=== PATIENT | male | born 1980 | race Caucasian/White ===

== ENCOUNTER 2016-09-05 20:14 | Observation (INO) ==
[2016-09-05] MEDS ORDERED: ALUM/MAG/SIMETH/LIDO VISC 1:1 30 ML BOTTLE PO STA (22:05)
[2016-09-05] MEDS ORDERED: ONDANSETRON 4 MG/2 ML VIAL IV STA (22:05)
[2016-09-05] MEDS ORDERED: NITROGLYCERIN 2% OINT 1 INCH/GM PACK TOP STA (22:05)
[2016-09-05] MEDS ORDERED: ASPIRIN 325 MG TABLET PO STA (22:05)
[2016-09-05] MEDS ORDERED: MORPHINE 2 MG/1 ML SYRINGE IV STA (22:05)
[2016-09-05 22:10] LABS: Basophils % 0.3 % (0.0-0.8); Eosinophils # 0.1 10*3/uL (0.0-0.87); Eosinophils % 0.9 % (0.00-10.9); Hematocrit 46.1 VOL% (42.0-52.0); Hemoglobin 15.5 GM/DL (14.0-18.0); Immature Granulocytes % 0.4 %; Immature Granulocytes Absolute 0.04 #; Lymphocytes # 3.8 10*3/uL (1.4-4.0); Lymphocytes % 35.9 % (21.2-54.2); Mean Corpuscular HGB Conc 33.6 GM/DL (32-36); Mean Corpuscular Hemoglobin 32 PG (27-34); Mean Corpuscular Volume 94.1 FL (87-102); Mean Platelet Volume 12.1 FL (9.6-12.0); Monocytes # 0.8 10*3/uL (0.11-0.8); Monocytes % 7.8 % (1.7-12.7); Neutrophils # 5.9 10*3/uL (1.4-7.4); Neutrophils % 54.7 % (38.7-73.9); Platelet Count 223 T/CUMM (130-400); Red Cell Distribution Width 13.2 % (9.3-17.3); White Blood Count 10.7 T/CUMM (4-12)
[2016-09-05] MEDS ORDERED: NITROGLYCERIN 2% OINT 1 INCH/GM PACK TOP ONE (22:16)
[2016-09-05] MEDS ORDERED: ONDANSETRON 4 MG/2 ML VIAL ONE (22:16)
[2016-09-05] MEDS ORDERED: METOPROLOL TARTRATE 25 MG TABLET ONE (22:16)
[2016-09-05] MEDS ORDERED: MORPHINE 2 MG/1 ML SYRINGE ONE (22:17)
[2016-09-05] MEDS ORDERED: ALUM/MAG/SIMETH/LIDO VISC 1:1 30 ML BOTTLE PO ONE (22:17)
[2016-09-05 22:19] LABS: D-Dimer <= 0.5 MG/L FEU; PT Patient Result 11.1 SECS
--- NOTE | 2016-09-05 22:19 | EKG Report ---
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
[2016-09-05] MEDS: METOPROLOL TARTRATE 25 MG TABLET PO STA ×2 (22:24→22:34)
[2016-09-05 22:25] LABS: Alanine Aminotransferase 40 U/L (16-61); Albumin 4.2 G/DL (3.4-5.0); Alkaline Phosphatase 59 U/L (45-117); Aspartate Amino Transferase 20 U/L (0-37); Bilirubin,Total < 0.39 MG/DL (0.2-1.0); Blood Urea Nitrogen 18 MG/DL (7-18); Calcium 8.8 MG/DL (8.5-10.1); Glucose 98 MG/DL (74-106); Magnesium 2.3 MG/DL (1.8-2.4); Osmolality,Calculated 284.1 MOS/KG (273-304); Potassium 4.3 MMOL/L (3.5-5.1); Sodium 142 MMOL/L (136-145); Total Protein 7.6 G/DL (6.4-8.3); Troponin I Only < 0.015 NG/ML (0.00-0.045)
--- NOTE | 2016-09-05 22:26 | Emergency Department Note ---
Amy Kearney Emily, am scribing for, and in the presence of, Shaan Fall MD 21: 59. Eufemia Kearney Charles R, MD, personally performed the services described in this documentation, ascribed by Nadiya Reyes in my presence, and it is both accurate and complete . Arrival - Arrival Chief Complaint: Weakness Stated Complaint: lightheaded/nausea/weakness/SOB ED Nursing Triage Note: pt states he has been having weakness and slight sob. went to the clinic and had labs and ekg done and was told to come here. dizzy at times and chest pressure this morning Mode of Arrival: Ambulatory Limitations: No Limitations Source: Patient Time Seen by Provider: 09/05/16 21:02 - History of Present Illness HPI Narrative: Pt is a 36 y/o male who came to ED from clinic for further evaluation of abnormal EKG earlier today. Pt c/o generalized weakness and chest pressure. He notes the pressure in chest has been ongoing for 3 weeks, in waves, however, the weakness started today and was a cause for his concern. Pt states he tried getting an appointment with Dr Leonidas Ji but no luck and [facility]. Pt reports walking a short distance he becomes extremely weak, and has not felt himself recently. His mother of heart issues in her mid- 40s. PMHx of degenerative disc in lower back, but denies official dx of DM. Pt denies tobacco usage. Onset (ago): week(s) Consistency: constant Severity: mild, moderate Severity scale (1-10): 4 Quality: other (pressure) Allergies/Adverse Reactions: Allergies Allergy/AdvReac Type Severity Reaction Status Date / Time Penicillins Allergy RASH Verified 06/15/15 17:27 Home Medications: Home Medications Medication Instructions Recorded Confirmed Type Propranolol LA Cap [Inderal LA Cap] 120 mg PO DAILY 05/04/16 09/05/16 History Review of System - Review of System 12 point system: reviewed and no additional remarkable complaints except as stated - Review of System Constitutional: Present: weakness (generalized). Absent: fever Respiratory: Absent: respiratory distress Cardiovascular: Absent: chest pain (pressure), syncope Gastrointestinal: Absent: abdominal pain, nausea, vomiting Genitourinary male: Absent: dysuria Musculoskeletal: Absent: arm pain, leg pain, neck pain Skin: Absent: rash Neurological: Absent: headache Psychiatric: Absent: anxiety Medical,Surgical,& Family Hx - Medical History Cardio: History of: Hypertension Genitourinary: History of: Recurring Urinary Tract Infections Musculoskeletal: History of: Back/Neck Problems, Herniated Disk - Surgical History HEENT Surgeries: Patient denies: Tonsilectomy & Adenoidectomy (Adnoidectomy only) - Family History Family History: Reports;: Family Heart Disease (mother in mid-40's ) - Social History Smoking Status: Never smoker Frequency of Alcohol Use: None Type of Drug Use: None Functional capacity: independent ambulation Exam Vital Signs: Vital Signs Temperature 97.9 F 09/05/16 20:15 Pulse Rate 68 09/05/16 20:15 Respiratory Rate 20 09/05/16 20:15 Blood Pressure 142/92 09/05/16 20:15 O2 Sat by Pulse Oximetry 97 09/05/16 20:15 - General General appearance: alert, in no apparent distress, obese - Head Head exam: Present: atraumatic, normocephalic - Eye Eye exam: Present: PERRL, EOMI - ENT ENT exam: Present: mucous membranes moist. Absent: mucous membranes dry - Neck Neck exam: Present: full ROM. Absent: tenderness - Chest Chest inspection: Present: symmetric chest wall rise. Absent: tenderness - Respiratory Respiratory exam: Present: normal lung sounds bilaterally. Absent: accessory muscle use, respiratory distress - Cardiovascular Cardiovascular exam: Present: regular rate, normal rhythm, normal heart sounds - Abdominal Exam Abdominal exam: Present: soft, normal bowel sounds. Absent: distention, tenderness - Extremities Exam Extremities exam: Present: full ROM, pedal edema (+1). Absent: tenderness - Neurological Exam Neurological exam: Present: alert, oriented X3, CN II-XII intact. Absent: motor sensory deficit - Psychiatric Psychiatric exam: Present: normal affect, normal mood - Skin Skin exam: Present: warm, dry Course - Consultations Consultation #1: Hospitalist will admit patient Time: 22:35 Results - Labs CBC & BMP: 09/05/16 22:05 09/05/16 22:05 Lab Results: I have reviewed the patients labs Labs: Laboratory Tests 09/05/16 22:05 MPV 12.1 H - Diagnostic Findings Procedure: Chest x-ray: report reviewed by me (No acute cardiopulmonary process. No significant interval change.) Disposition Clinical Impression: Chest pain, Atypical chest pain Case discussed with: patient, patient's family Disposition: Still a Patient Condition: Stable Time of Disposition: 22:35
--- NOTE | 2016-09-05 22:32 | XRay Report ---
History: Chest pain Date: 09/05/2016 Study: Chest x-ray AP portable Comparison exam: January 18, 2015 The cardiomediastinal silhouette and pulmonary vasculature are unremarkable. The lungs and pleural spaces are clear. The osseous structures are unremarkable. Impression: No acute cardiopulmonary process. No significant interval change PROCEDURE INTERPRETED AT [facility] DEPARTMENT OF RADIOLOGY Final Report Signed by: Dr. Emmie Alcazar
[2016-09-05] MEDS ORDERED: ASPIRIN 325 MG TABLET ONE (22:34)
[2016-09-05] MEDS ORDERED: ONDANSETRON 4 MG/2 ML VIAL IV PRN (23:04)
--- NOTE | 2016-09-05 23:11 | Hospitalist History & Physical ---
Assessment and Plan (1) Hypertension Status: Acute Current Visit: Yes (2) Degenerative disc disease Status: Acute Current Visit: Yes (3) Atypical chest pain Status: Acute Assessment and plan: Plan for this patient will be admitting him to our service. Patient will be placed on telemetry. Will consult cardiology for their evaluation. Also I suspect this patient has sleep apnea given secondary to description of some of his symptoms and his weight. Will consult sleep medicine also. Draw serial cardiac enzymes and reevaluate patient in the morning. Current Visit: Yes History of Present Illness Chief complaint: Chest/abdominal tightness History of present illness: Mr. Chavez is a 36 year old male with past medical history significant for degenerative disc disease and hypertension who was in his normal state of health for the past couple weeks. Patient from time to time notices this he gets a strange sensation in his lower chest and upper abdomen when he exerts himself. There is really no significant radiation of this pain. Patient describes it as pressure. He said today he just did not feel like himself. He feels weak. He also reports nausea and lightheadedness. Patient went to the clinic today. They did some lab work and did an EKG and then referred him to our ER secondary to his EKG displaying Q waves. Patient has no cardiac history that he knows of but his mother did have her first cardiac issue in her mid 40s. Patient is 36. I was consulted to admit him through the emergency room Home Medications Medication Instructions Recorded Confirmed Type Propranolol LA Cap [Inderal LA Cap] 120 mg PO DAILY 05/04/16 09/05/16 History Allergies Allergy/AdvReac Type Severity Reaction Status Date / Time Penicillins Allergy RASH Verified 06/15/15 17:27 Medical,Surgical,& Family Hx - Medical History Cardio: History of: Hypertension Genitourinary: History of: Recurring Urinary Tract Infections Musculoskeletal: History of: Back/Neck Problems, Herniated Disk - Surgical History HEENT Surgeries: Patient denies: Tonsilectomy & Adenoidectomy (Adnoidectomy only) Orthopedic Surgeries: Surgical HX of;: Orthopedic Surgery - Family History Family History: Reports;: Family Heart Disease (mother in mid-40's ) - Social History Smoking Status: Never smoker Frequency of Alcohol Use: None Type of Drug Use: None 12 point system: reviewed and no additional remarkable complaints except as stated Exam - Constitutional Vitals: Period Temp Pulse Resp BP Sys/Barillas Pulse Ox Last 24 Hr 97.9 F-97.9 F 68-68 18-20 142-142/92-92 97 General appearance: morbidly obese - Head Head exam: Present: normal inspection - Eye Eye exam: Present: EOMI Pupils: Present: EMMA - ENT ENT exam: Present: normal exam - Neck Neck exam: Present: normal inspection - Respiratory Respiratory exam: Present: clear to auscultation bilaterally - Cardiovascular Cardiovascular exam: Present: regular rate and rhythm - GI/Abdominal GI/Abdominal exam: Present: normal bowel sounds - Extremities Exam Extremities exam: Present: normal inspection - Back Exam Back exam: Present: normal inspection - Neurological Exam Neurological exam: Present: alert, oriented X3 - Psychiatric Psychiatric exam: Present: normal affect, normal mood - Skin Skin exam: Present: normal color Results - Labs CBC & BMP: 09/05/16 22:05 09/05/16 22:05
[2016-09-05 23:30] LABS: Risk Ratio 5.41; VLDL CHOLESTEROL 24.4 MG/DL
[2016-09-06] MEDS: NITROGLYCERIN 2% OINT 1 INCH/GM PACK TOP SCH ×4 (00:15→19:05)
[2016-09-06] MEDS: ENOXAPARIN 40 MG/0.4 ML SYRINGE SUBCUT SCH ×2 (00:45→21:19)
[2016-09-06] MEDS ORDERED: ACETAMINOPHEN 325 MG TABLET PO PRN (01:15)
--- NOTE | 2016-09-06 02:30 | EKG Report ---
Stationary ECG Study 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
--- NOTE | 2016-09-06 07:58 | Sleep Medicine Consult ---
Assessment and Plan (1) Unspecified sleep apnea Status: Acute Assessment and plan: His symptoms, physical findings, and history are all certainly concerning for sleep apnea. We will set him up for outpatient polysomnography. I reviewed the risk factors of significant health problems associated with untreated sleep apnea including heart disease, hypertension, stroke, and diabetes. Outpatient polysomnography will be scheduled with follow-up in the sleep clinic. All questions were answered to their understanding. Thank you for this consult. Current Visit: Yes (2) Hypertension Status: Acute Assessment and plan: The prevalence rate for obstructive sleep apnea patients with hypertension is 35 %. That rate can be as high as 80% in patients who require 4 or more medications for blood pressure control. Current Visit: Yes (3) Obesity, unspecified Status: Acute Assessment and plan: Patient encouraged to continue to work on weight loss thru appropriate dieting and exercise. The combination of weight loss and CPAP therapy for obstructive sleep apnea is better than either therapy alone for obstructive sleep apnea. Current Visit: Yes History of Present Illness Chief complaint: Sleep apnea History of present illness: Mr. Chavez is a 36 year old male admitted with atypical chest pain. Thus far his cardiac isoenzymes have been negative. During the course of his evaluation , it was noted that he had symptoms concerning for sleep apnea. He had a stop bang score of 6 and an [place] sleepiness score of 13. Sleep medicine was consulted. The patient does have a history of loud snoring with an irregular stop and go pattern according to his . She has never noted overt obvious apnea but she does note pauses in his snoring. He awakens unrefreshed and fatigued. He describes his sleep is poor and non-refreshing. He does sometimes awaken from sleep with headaches. They usually retire about 10 PM and he will awaken between 6 and 7 feeling unrefreshed and fatigued. He has significant sleepiness throughout the day. He does have a family history of loud snoring and thinks his father may have sleep apnea. Home Medications Medication Instructions Recorded Confirmed Type Propranolol LA Cap [Inderal LA Cap] 120 mg PO DAILY 05/04/16 09/05/16 History Allergies Allergy/AdvReac Type Severity Reaction Status Date / Time Penicillins Allergy RASH Verified 06/15/15 17:27 Review of systems: Notable for about 75 pounds of weight gain over the past few years. Exam (Pulmonay) H&P - Constitutional Vitals: Period Temp Pulse Resp BP Sys/Barillas Pulse Ox Last 24 Hr 96.6 F-98 F 57-72 16-20 124-164/72-92 94-97 Exam: He is alert and responsive in no acute distress. Pupils equal round reactive to light and accommodation. Extraocular movements intact. Oropharynx with a class III Mallampati exam. Neck is supple without adenopathy. He has a neck circumference of 18-1/2 inches. No supraclavicular adenopathy is noted. Chest with symmetrical breath sounds without focal wheeze, rhonchi, or rales. Cardiac exam reveals a regular rhythm without murmur or gallop. Abdomen soft nontender without palpable hepatosplenomegaly or mass. Extremities are without clubbing, cyanosis, or edema. Neurologically, he is grossly intact. He moves all extremities with good strength and answers questions appropriately. Medical,Surgical,& Family Hx - Medical History Cardio: History of: Hypertension Genitourinary: History of: Recurring Urinary Tract Infections Musculoskeletal: History of: Back/Neck Problems, Herniated Disk - Surgical History HEENT Surgeries: Patient denies: Tonsilectomy & Adenoidectomy (Adnoidectomy only) Orthopedic Surgeries: Surgical HX of;: Orthopedic Surgery - Family History Family History: Reports;: Family Heart Disease (mother in mid-40's ) - Social History Smoking Status: Never smoker Frequency of Alcohol Use: None Type of Drug Use: None Results - Labs CBC & BMP: 09/05/16 22:05 09/05/16 22:05 Lab Results: I have reviewed the past 24 hour labs
--- NOTE | 2016-09-06 08:07 | EKG Report ---
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
[2016-09-06] MEDS: PROPRANOLOL LA 60 MG CAPSULE PO SCH (08:57)
[2016-09-06] MEDS: ASPIRIN EC 325 MG TABLET PO SCH (08:57)
--- NOTE | 2016-09-06 12:13 | Cardiology Consult Note ---
Luis Kearney April RN, am scribing for, and in the presence of, Patricio Son MD 12 :11. Assessment and Plan - Time spent with patient Time spent with patient: Greater than 30 minutes (Due to assessment, planning, documentation, medication review) (1) Chest pain Status: Acute Assessment and plan: 36-year-old male, with morbid obesity, worsening exertional chest discomfort and PICKETT, inferior Q waves on EKG. Family history positive for early onset CAD. Hypertension. Cardiac biomarkers negative. D-dimer negative. -Echo. -Stress test. -Sleep study is planned. -Continue aspirin, propranolol. -fatigue - we may switch propranolol to a more selective agent, such as metoprolol, or use a different HTN med if has no CAD. -LDL 108. He will need a statin, if his CAD -Discussed importance of weight loss. -Keep on telemetry Current Visit: Yes (2) Hypertension Status: Chronic Current Visit: Yes (3) Obesity, unspecified Status: Chronic Current Visit: Yes (4) Unspecified sleep apnea Status: Acute Current Visit: Yes History of Present Illness - Data of Consult Patient: new to practice Consult date: 09/05/16 Requesting Physician: Gregor Mcbride Primary care physician: Leonidas Ji - Consult Narrative Reason for consult: Chest pain History of present illness: Legal Aid: None PCP: Dr. Ji Mr. Chavez is a 36 year old male who is followed by cardiology. He reports he saw a ear nose and throat specialist as a child in [place] after a murmur was found. He said they did a workup with no significant findings and was told he needed no further workup at that time. He has a history of hypertension and disc he reports problems. Surgical history includes adenoidectomy and back surgery. Family history is positive for mother with cancer and heart problems and he has history of hypertension. He reports he is a lifetime non-smoker. He reports he has been feeling weak and fatigued for about 2 weeks. Yesterday he began to experience dizziness, shortness of breath at rest that increases with exertion, nausea, and chest pressure. He says the chest pressure is in the center of his chest. He reports it has been tender to touch at times and comes on when he takes a deep breath. He is unable to rate it, he states the pain is not unbearable. Symptoms are intermittent and he cannot tell me how long they last at a time. He denies any known triggers or alleviators other than deep breathing. He also reports feeling as if his heart is pulsing in his ears at times. EKG on admission showed sinus rhythm with heart rate of 73. radiation monitor currently shows sinus bradycardia with heart rates in the 50s. Chest x-ray negative for acute cardiopulmonary process. Troponin has been negative 3. D-dimer was negative. Blood pressure was slightly elevated on admission at 142/92. He was given a GI cocktail, metoprolol tartrate 25 mg p.o. 1, Nitro-Bid, aspirin, and morphine IV in the emergency department. His pain was relieved while in the emergency department. This morning he is seen without any of the above complaints. He does state they did come and go during the night. Blood pressure this morning improved at 124/76. Dr. Marin saw him in consultation and plans are to schedule an outpatient sleep study. CC: Brandon Almaraz III - Home Medications and Allergies Home Medications: Home Medications Medication Instructions Recorded Confirmed Type Propranolol LA Cap [Inderal LA Cap] 120 mg PO DAILY 05/04/16 09/05/16 History Allergies/Adverse Reactions: Allergies Allergy/AdvReac Type Severity Reaction Status Date / Time Penicillins Allergy RASH Verified 06/15/15 17:27 - Constitutional Constitutional: Present: as per HPI - EENT Eyes: Present: requires corrective lense. Absent: blurry vision Ears: Absent: decreased hearing, ear pain, tinnitus Nose, mouth and throat: Present: headache(s). Absent: dysphagia, epistaxis, neck pain - Cardiovascular Cardiovascular: Present: chest pain at rest, dyspnea, dyspnea on exertion, lightheadedness, palpitations. Absent: edema, radiating jaw, neck or arm pain - Respiratory Respiratory: Present: dyspnea, dyspnea on exertion. Absent: cough, hemoptysis, wheezing - Gastrointestinal Gastrointestinal: Present: nausea, vomiting. Absent: abdominal pain, constipation, diarrhea, hematemesis, hematochezia, melena - Genitourinary Genitourinary: Absent: dysuria, hematuria - Musculoskeletal Musculoskeletal: Present: back pain. Absent: limited range of motion, muscle weakness - Neurological Neurological: Present: dizziness, headache(s). Absent: abnormal gait, abnormal speech, frequent falls, syncope - Psychiatric Psychiatric: Absent: anxiety, depression - Endocrine Endocrine: Present: fatigue - Hematologic/Lymphatic Hematologic/Lymphatic: Absent: easy bleeding, easy bruising Medical,Surgical,& Family Hx - Medical History Cardio: History of: Hypertension Genitourinary: History of: Recurring Urinary Tract Infections Musculoskeletal: History of: Back/Neck Problems, Herniated Disk - Surgical History HEENT Surgeries: Surgical HX of: Tonsilectomy & Adenoidectomy (Adenoidectomy only) Orthopedic Surgeries: Surgical HX of;: Spinal Surgery (Back) - Family History Family History: Reports;: Family Heart Disease (mother in mid-40's ) - Social History Smoking Status: Never smoker Have you smoked in the last 12 months: No Frequency of Alcohol Use: None Type of Drug Use: None Marital Status: Lives With:: Spouse Functional capacity: independent ambulation Physical Examination Vital Signs Temp Pulse Resp BP Pulse Ox 97.9 F 68 20 142/92 97 09/05/16 20:15 09/05/16 20:15 09/05/16 20:15 09/05/16 20:15 09/05/16 20:15 General: Present: Appears Well, No Apparent Distress HEENT: Present: PERRL, Mucus Membranes Moist Neck: Present: Supple Neck, Midline Trachea, No Bruit Cardiac: Present: Reg Rate and Rhythm, Bradycardia Lungs: Present: Normal Breath Sounds, No Wheeze, Rales, Rhonchi Neuro: Absent: Resting Tremor, Essential Tremor Abdomen: Present: Soft, Active Bowel Sounds, Non-Tender. Absent: Distended Skin: Absent: Rash, Suspicious Lesions Musculoskeletal: Present: No Pain, Normal Range of Motion Extremities: Present: No Edema, Normal Upper Extr. Pulses, Normal Lower Extr. Pulses Result/EKG - Labs CBC & BMP: 09/05/16 22:05 09/05/16 22:05 Lab Results: I have reviewed the past 24 hour labs Labs: Laboratory Results - last 24 hr 09/05/16 09/05/16 09/05/16 21:18 22:05 22:05 WBC RBC Hgb Hct MCV MCH MCHC RDW Plt Count MPV Neut % (Auto) Lymph % (Auto) [place] % (Auto) Eos % (Auto) Baso % (Auto) Neut # (Auto) Lymph # (Auto) [place] # (Auto) Eos # (Auto) Baso # (Auto) Immature Gran % Nucleated RBC % Immature Gran # Nucleated RBCs # INR 1.0 PT Patient/Control Mix 11.1 D-Dimer, Quantitative <= 0.5 Sodium 142 Potassium 4.3 Chloride 106 Carbon Dioxide 28 Anion Gap 12.3 BUN 18 Creatinine 0.90 GFR Calculation 172 BUN/Creatinine Ratio 20.00 Glucose 98 Calculated Osmolality 284.1 Calcium 8.8 Magnesium 2.3 Total Bilirubin < 0.39 AST 20 ALT 40 Alkaline Phosphatase 59 Troponin I < 0.015 B-Natriuretic Peptide Total Protein 7.6 Albumin 4.2 Globulin 3.4 Albumin/Globulin Ratio 1.2 Triglycerides 122 Cholesterol 146 LDL Cholesterol 108.0 VLDL Cholesterol 24.4 HDL Cholesterol 27 L Heart Disease Risk Ratio 5.41 Lipase 121.0 09/05/16 09/05/16 09/06/16 22:05 22:05 02:18 WBC 10.7 RBC 4.90 Hgb 15.5 Hct 46.1 MCV 94.1 MCH 32 MCHC 33.6 RDW 13.2 Plt Count 223 MPV 12.1 H Neut % (Auto) 54.7 Lymph % (Auto) 35.9 [place] % (Auto) 7.8 Eos % (Auto) 0.9 Baso % (Auto) 0.3 Neut # (Auto) 5.9 Lymph # (Auto) 3.8 [place] # (Auto) 0.8 Eos # (Auto) 0.1 Baso # (Auto) 0.0 Immature Gran % 0.4 Nucleated RBC % 0.0 Immature Gran # 0.04 Nucleated RBCs # 0.00 INR PT Patient/Control Mix D-Dimer, Quantitative Sodium Potassium Chloride Carbon Dioxide Anion Gap BUN Creatinine GFR Calculation BUN/Creatinine Ratio Glucose Calculated Osmolality Calcium Magnesium Total Bilirubin AST ALT Alkaline Phosphatase Troponin I < 0.015 B-Natriuretic Peptide 8 Total Protein Albumin Globulin Albumin/Globulin Ratio Triglycerides Cholesterol LDL Cholesterol VLDL Cholesterol HDL Cholesterol Heart Disease Risk Ratio Lipase 09/06/16 05:18 WBC RBC Hgb Hct MCV MCH MCHC RDW Plt Count MPV Neut % (Auto) Lymph % (Auto) [place] % (Auto) Eos % (Auto) Baso % (Auto) Neut # (Auto) Lymph # (Auto) [place] # (Auto) Eos # (Auto) Baso # (Auto) Immature Gran % Nucleated RBC % Immature Gran # Nucleated RBCs # INR PT Patient/Control Mix D-Dimer, Quantitative Sodium Potassium Chloride Carbon Dioxide Anion Gap BUN Creatinine GFR Calculation BUN/Creatinine Ratio Glucose Calculated Osmolality Calcium Magnesium Total Bilirubin AST ALT Alkaline Phosphatase Troponin I < 0.015 B-Natriuretic Peptide Total Protein Albumin Globulin Albumin/Globulin Ratio Triglycerides Cholesterol LDL Cholesterol VLDL Cholesterol HDL Cholesterol Heart Disease Risk Ratio Lipase - Diagnostic Findings Procedure: Chest x-ray: report reviewed by me - EKG EKG results: interpreted by me EKG shows: bradycardia, sinus rhythm Huy Kearney Attila, MD, personally performed the services described in this documentation, ascribed by Sylvia Smith RN in my presence, and it is both accurate and complete 213 .
--- NOTE | 2016-09-06 15:32 | Event Note ---
Patient underwent nuclear stress testing. He achieved 94% of THR (148/156). Patient made it to stage III of sylvia protocol with achievement of 8.9 METs and cardiolite was injected. Patient had moderate dyspnea on exertion, fatigue, and lower extremity fatigue. Patient was noted to have mild ST depression in II and V6. No other significant EKG changes noted. No chest pain, dizziness, lightheadedness, or syncope noted. Patient now to nuclear medicine for final scan. Dr. Son to read, interpret, and advise.
--- NOTE | 2016-09-06 16:31 | ECHO Report ---
Trae Chavez Exam Date: 09/06/2016 13:21 Referring Physician: Technologist: Nicole Pandya Age: 36 Ht (in): 73 Wt (lb): 347 Gender: M Exam Location: [facility] Echo Indications: chest pain, HTN, PAVAN, obesity BP: 136 / 83 HR: 54 Rhythm: sinus [place] Technical Quality: IMPRESSIONS Normal left ventricular size and systolic function, left ventricular ejection fraction is estimated at 60%. No hypertrophy. Normal diastolic function. No significant valvular abnormalities. MEASUREMENTS (Male / Female) Normal Values 2D ECHO LV Diastolic Diameter PLAX 4.7 cm 4.2 - 5.9 / 3.9 - 5.3 cm LV Systolic Diameter PLAX 2.4 cm LV Fractional Shortening PLAX 48.9 % IVS Diastolic Thickness 1.5 cm 0.6 - 1.0 / 0.6 - 0.9 cm LVPW Diastolic Thickness 1.3 cm 0.6 - 1.0 / 0.6 - 0.9 cm RV Internal Dim ED PLAX 4.0 cm Aortic Root Diameter 2.8 cm LA Systolic Diameter LX 4.7 cm 3.0 - 4.0 / 2.7 - 3.8 cm FINDINGS Left Ventricle Normal left ventricular size and systolic function, left ventricular ejection fraction is estimated at 60%. No hypertrophy. Normal diastolic function. Right Ventricle Normal right ventricular size and systolic function. Right Atrium Normal right atrial size. Left Atrium Normal left atrial size. Mitral Valve Morphologically normal mitral valve. No stenosis or insufficiency. Aortic Valve The aortic valve is trileaflet, delicate and has normal motion. No stenosis or insufficiency. Tricuspid Valve Morphologically normal tricuspid valve. No stenosis or insufficiency. Insufficient signal to estimate pulmonary artery systolic pressure. Pulmonic Valve Morphologically normal pulmonic valve. Pericardium No pericardial effusion. Aorta Normal size aortic root and proximal ascending aorta. Patricio Son (Electronically Signed) Final Date: 06 September 2016 16:22
--- NOTE | 2016-09-06 16:50 | Hospitalist Progress Note ---
Assessment and Plan - Time spent with patient Time spent with patient: Greater than 30 minutes (1) Atypical chest pain Problem details: Acute myocardial infarction ruled out. Consulting loan documents closer recommends nuclear medicine stress test to further risk stratify coronary artery disease workup. Patient's baseline at rest EKG is abnormal. Status: Acute Current Visit: Yes (2) Hypertension Problem details: Improving control. Continue beta-sania therapy. Inderal substituted in place of metoprolol per consulting loan documents closer. Status: Chronic Current Visit: Yes (3) Degenerative disc disease Problem details: Completed surgical procedure one half months ago. No cardiopulmonary complications experienced in the perioperative period. Status : Acute Current Visit: Yes (4) Obesity, unspecified Problem details: I recommend outpatient primary care provider supervised exercise and weight reduction program. Status: Chronic Current Visit: Yes Hospitalist: Subjective Interval history: Patient is a 36-year-old male admitted for evaluation and management of chest pain. Patient does not have any identified ischemic heart disease risk factors other than possibly positive family history. He does not have details but believes that his mother may have been diagnosed with "heart trouble " in her mid 40s. Patient denies previous in-hospital evaluation of chest pain complaints. He has not identified any precipitating or relieving factors. He denies previous similar symptoms. Exam - Constitutional Vitals: Period Temp Pulse Resp BP Sys/Barillas Pulse Ox Last 24 Hr 96.6 F-98.6 F 57-72 16-20 124-164/72-92 94-97 General appearance: over weight, morbidly obese - Head Head exam: Present: normal inspection - Eye Eye exam: Present: EOMI Pupils: Present: EMMA - ENT ENT exam: Present: normal exam - Neck Neck exam: Present: normal inspection. Absent: meningismus, tenderness - Respiratory Respiratory exam: Present: clear to auscultation bilaterally. Absent: accessory muscle use, chest wall tenderness, rales, wheezes - Cardiovascular Cardiovascular exam: Present: regular rate and rhythm - GI/Abdominal GI/Abdominal exam: Present: normal bowel sounds, distended, other (Truncal obesity). Absent: mass, tenderness, rebound - Extremities Exam Extremities exam: Present: normal inspection. Absent: calf tenderness, edema - Back Exam Back exam: Present: normal inspection - Neurological Exam Neurological exam: Present: alert, oriented X3 - Psychiatric Psychiatric exam: Present: normal affect. Absent: agitated, anxious - Skin Skin exam: Present: normal color, warm, dry. Absent: rash Results - Labs CBC & BMP: 09/05/16 22:05 09/05/16 22:05 - Diagnostic Findings Procedure: Ultrasound: other (Echocardiogram study completed today documented LVEF 60% with normal diastolic function and no wall motion abnormalities reported.)
--- NOTE | 2016-09-06 18:26 | Event Note ---
Echo showed no structural heart disease. No evidence of myocardial ischemia on stress test. We discussed the importance of cardiac risk factor management. Weight loss, sleep study for suspected sleep apnea. If he does have sleep apnea and the fatigue does not improve with CPAP, we may consider switching the propranolol to a more selective beta-sania. He is using this for hypertension and migraines, the migraines recurred, when he stopped this medication for a while. For now, I would suggest to continue this and readdress after the sleep study. Continue aspirin 81 mg daily. Follow-up with PCP, follow-up with cardiology as needed. Please call with any questions.
--- NOTE | 2016-09-06 19:31 | Nuclear Medicine Report ---
EXERCISE STRESS TEST Stress test interpreted by Dr. Patricoi Son. INDICATION: Chest pain. PROCEDURE: At rest, 10 mCi of 46-qpwzjvkaax-frxzwou sestamibi was injected and rest images were obtained. The patient then exercised according to the Rafy treadmill stress protocol. At peak stress, 30 mCi of 77-aailjgletu-aqrxwbv sestamibi was injected and post-stress images were obtained. FINDINGS: At rest, sinus rhythm, 63 beats per minute, inferior Q-waves without significant ST-T changes. At rest, blood pressure 118/78 mmHg. The patient exercised for 9 minutes and 32 seconds, achieving a peak heart rate of 148 beats per minute, 80% of the maximum, age predicted heart rate. The peak exertion was 8.5 METs. The blood pressure mervin to 117/70 mmHg. There was no arrhythmia and there were no ischemic ST-T changes. Rest and post stress perfusion and gated images were reviewed. There are motion artifacts in post stress test images. End-diastolic volume is 113 cc, end-systolic volume is 40 cc, and the calculated left ventricular ejection fraction is 64%. There is normal systolic thickening in all the segments. At rest, there is a small area in the apical region of moderately decreased activity, which improves post stress, suggestive of imaging artifacts. There are no corresponding wall motion abnormalities. CONCLUSION: 1. CLINICALLY AND ELECTRICALLY NEGATIVE SUBMAXIMAL STRESS TEST. SENSITIVITY IS LIMITED DUE TO LOW PEAK HEART RATE ACHIEVED. SIM TREADMILL STRESS SCORE IS 9. 2. NORMAL LEFT VENTRICULAR SIZE, NORMAL SYSTOLIC FUNCTION, NO EVIDENCE OF MYOCARDIAL DISEASE OR ISCHEMIA. 3. THIS IS A LOW-RISK TEST. Procedure performed and interpreted at [facility] Department of Radiology. [facility]
[2016-09-07] MEDS: NITROGLYCERIN 2% OINT 1 INCH/GM PACK TOP SCH ×3 (00:07→12:27)
[2016-09-07] MEDS: ASPIRIN EC 325 MG TABLET PO SCH (09:05)
[2016-09-07] MEDS: PROPRANOLOL LA 60 MG CAPSULE PO SCH (09:05)
--- NOTE | 2016-09-07 10:45 | Discharge Summary ---
<Tim Vasquez - Last Filed: 09/07/16 10:52> Hospital Course - Hospital Course Hospital Course: Mr. Chavez is a 36-year-old obese male who was admitted on 09/05/2016 with atypical chest pain. He was placed in the telemetry unit for observation and further evaluation and management of this chest pain. Baseline EKG on presentation was normal. Cardiology was consulted and performed an echocardiogram which revealed a left ventricular estimated ejection fraction to be 60% with no significant valvular abnormalities. Patient also underwent a nuclear stress test during which he achieved 94% of his targeted heart rate and reached stage III of Rafy protocol with mild ST depression in leads II and V6. There was no structural heart disease per echo or evidence of myocardial infarction by nuclear stress test. Cardiology recommends continuing aspirin 81 mg daily with PCP follow-up. Sleep medicine was also consulted during his hospital stay and recommended outpatient polysomnography. Patient has been encouraged to undergo a supervised exercise and weight reduction program with his PCP. At this time, he has reached maximum benefit from hospitalization and stable for discharge. Additional discharge orders and follow-up instructions to follow per Dr. Almaraz. Specialty Discharge - Follow Up or Referrals Follow up with: Leonidas Ji MD [Physician] - 2 Weeks Gladys Marin MD [Physician] - (Outpatient polysomnography. Sleep center is aware of this patient and will call on 09/09/2016, to schedule a date time.) Discharge Plan - Discharge Data Disposition: Disch To Home/Self Care Condition at Discharge: Stable Discharge Diet: advance to your usual diet Activity: resume usual activities as tolerated Hygiene: no restrictions Weight Bearing at Discharge: full weight bearing Driving: no restrictions Contact your physician if you experience:: fever over 101, Shortness of breath - Discharge Medications No Action Propranolol LA Cap [Inderal LA Cap] 120 mg PO DAILY - Follow Up or Referral Follow Up: Leonidas Ji MD [Physician] - 2 Weeks Gladys Marin MD [Physician] - (Outpatient polysomnography. Sleep center is aware of this patient and will call on 09/09/2016, to schedule a date time.) - Forms/Instructions Exam - Constitutional Vitals: Period Temp Pulse Resp BP Sys/Barillas Pulse Ox Last 24 Hr 96.8 F-98.6 F 54-75 18-20 120-148/71-89 91-98 Exam: General appearance: Morbidly obese, no acute distress - Head Head exam: Present: normocephalic, atraumatic - Eye Eye exam: Present: EOMI. Absent: conjunctival injection, nystagmus Pupils: Present: EMMA, normal accommodation - ENT ENT exam: Present: normal exam, normal external ear exam - Neck Neck exam: Present: normal inspection. Absent: lymphadenopathy, tenderness, thyromegaly - Respiratory Respiratory exam: Present: clear to auscultation bilaterally. Absent: rales, rhonchi, wheezes - Cardiovascular Cardiovascular exam: Present: regular rate and rhythm. Absent: carotid bruit, gallop, rubs - GI/Abdominal GI/Abdominal exam: Present: normal bowel sounds. Absent: ascites, distended, mass - Extremities Exam Extremities exam: Present: normal inspection, normal capillary refill. Absent: edema - Back Exam Back exam: Absent: CVA tenderness (L), CVA tenderness (R) - Neurological Exam Neurological exam: Present: alert, oriented X3, CN II through XII intact, reflexes normal - Psychiatric Psychiatric exam: Present: normal affect, normal mood - Skin Skin exam: Present: normal color, warm, dry Discharge Results Procedures and tests throughout hospitalization: Echocardiogram -LV EF estimated 60% with no significant valvular abnormalities. Nuclear stress test -moderate ST depression in leads II and V6 with no significant motion abnormality or evidence of CT. Labs on day of discharge: Labs from last 24 hours 09/06/16 20:21 POC Glucose 278 H DS: Provider Date of admission: 09/05/16 22:49 Primary care physician: Bharat Salmeron DO Attending physician on admission: Gregor Mcbride MD Consults: 09/05/16 23:08 Consult to Physician [CONS] Routine Comment: Consulting Provider: Cardiology - [facility] Consult to Specialist Group: Cardiology Person Notified: Arnaud Date Notified: 09/06/16 Time Notified: 07:45 09/06/16 00:12 Consult to Sleep Center [CONS] Routine Reason for Sleep Center: Sleep Center Physician Consult Comment: suspect O SA Discharging clinician: Tim DUTTA Expected date of discharge: 09/07/16 Chest Pain - Lab Data Lab Results 09/05/16 09/05/16 09/05/16 Range/Units 21:18 22:05 22:05 WBC (4-12) T/CUMM RBC (3.8-5.5) MC/CUMM Hgb (14.0-18.0) GM/DL Hct (42.0-52.0) VOL% MCV (87-102) FL MCH (27-34) PG MCHC (32-36) GM/DL RDW (9.3-17.3) % Plt Count (130-400) T/CUMM MPV (9.6-12.0) FL Neut % (Auto) (38.7-73.9) % Lymph % (Auto) (21.2-54.2) % Teller % (Auto) (1.7-12.7) % Eos % (Auto) (0.00-10.9) % Baso % (Auto) (0.0-0.8) % Neut # (Auto) (1.4-7.4) 10*3/uL Lymph # (Auto) (1.4-4.0) 10*3/uL Teller # (Auto) (0.11-0.8) 10*3/uL Eos # (Auto) (0.0-0.87) 10*3/uL Baso # (Auto) (0.0-0.2) 10*3/uL Immature Gran % % Nucleated RBC % /100WBC Immature Gran # # Nucleated RBCs # 10*3/uL INR 1.0 PT Patient/Control Mix 11.1 SECS D-Dimer, Quantitative <= 0.5 MG/L FEU Sodium 142 (136-145) MMOL/L Potassium 4.3 (3.5-5.1) MMOL/L Chloride 106 (98-107) MMOL/L Carbon Dioxide 28 (21-32) MMOL/L Anion Gap 12.3 (5.0-15.0) MMOL/L BUN 18 (7-18) MG/DL Creatinine 0.90 (0.70-1.30) MG/DL GFR Calculation 172 ML/MIN BUN/Creatinine Ratio 20.00 (6.00-20.00) RATIO Glucose 98 (74-106) MG/DL POC Glucose (74-106) MG/DL Calculated Osmolality 284.1 (273-304) MOS/KG Calcium 8.8 (8.5-10.1) MG/DL Magnesium 2.3 (1.8-2.4) MG/DL Total Bilirubin < 0.39 (0.2-1.0) MG/DL AST 20 (0-37) U/L ALT 40 (16-61) U/L Alkaline Phosphatase 59 (45-117) U/L Troponin I < 0.015 (0.00-0.045) NG/ML B-Natriuretic Peptide (2-100) PG/ML Total Protein 7.6 (6.4-8.3) G/DL Albumin 4.2 (3.4-5.0) G/DL Globulin 3.4 (2.3-3.5) G/DL Albumin/Globulin Ratio 1.2 (1.1-2.2) RATIO Triglycerides 122 (2-150) MG/DL Cholesterol 146 (50-200) MG/DL LDL Cholesterol 108.0 MG/DL VLDL Cholesterol 24.4 MG/DL HDL Cholesterol 27 L (40-60) MG/DL Heart Disease Risk Ratio 5.41 Lipase 121.0 (73-393) U/L 09/05/16 09/05/16 09/06/16 Range/Units 22:05 22:05 02:18 WBC 10.7 (4-12) T/CUMM RBC 4.90 (3.8-5.5) MC/CUMM Hgb 15.5 (14.0-18.0) GM/DL Hct 46.1 (42.0-52.0) VOL% MCV 94.1 (87-102) FL MCH 32 (27-34) PG MCHC 33.6 (32-36) GM/DL RDW 13.2 (9.3-17.3) % Plt Count 223 (130-400) T/CUMM MPV 12.1 H (9.6-12.0) FL Neut % (Auto) 54.7 (38.7-73.9) % Lymph % (Auto) 35.9 (21.2-54.2) % Teller % (Auto) 7.8 (1.7-12.7) % Eos % (Auto) 0.9 (0.00-10.9) % Baso % (Auto) 0.3 (0.0-0.8) % Neut # (Auto) 5.9 (1.4-7.4) 10*3/uL Lymph # (Auto) 3.8 (1.4-4.0) 10*3/uL Teller # (Auto) 0.8 (0.11-0.8) 10*3/uL Eos # (Auto) 0.1 (0.0-0.87) 10*3/uL Baso # (Auto) 0.0 (0.0-0.2) 10*3/uL Immature Gran % 0.4 % Nucleated RBC % 0.0 /100WBC Immature Gran # 0.04 # Nucleated RBCs # 0.00 10*3/uL INR PT Patient/Control Mix SECS D-Dimer, Quantitative MG/L FEU Sodium (136-145) MMOL/L Potassium (3.5-5.1) MMOL/L Chloride (98-107) MMOL/L Carbon Dioxide (21-32) MMOL/L Anion Gap (5.0-15.0) MMOL/L BUN (7-18) MG/DL Creatinine (0.70-1.30) MG/DL GFR Calculation ML/MIN BUN/Creatinine Ratio (6.00-20.00) RATIO Glucose (74-106) MG/DL POC Glucose (74-106) MG/DL Calculated Osmolality (273-304) MOS/KG Calcium (8.5-10.1) MG/DL Magnesium (1.8-2.4) MG/DL Total Bilirubin (0.2-1.0) MG/DL AST (0-37) U/L ALT (16-61) U/L Alkaline Phosphatase (45-117) U/L Troponin I < 0.015 (0.00-0.045) NG/ML B-Natriuretic Peptide 8 (2-100) PG/ML Total Protein (6.4-8.3) G/DL Albumin (3.4-5.0) G/DL Globulin (2.3-3.5) G/DL Albumin/Globulin Ratio (1.1-2.2) RATIO Triglycerides (2-150) MG/DL Cholesterol (50-200) MG/DL LDL Cholesterol MG/DL VLDL Cholesterol MG/DL HDL Cholesterol (40-60) MG/DL Heart Disease Risk Ratio Lipase (73-393) U/L 09/06/16 09/06/16 Range/Units 05:18 20:21 WBC (4-12) T/CUMM RBC (3.8-5.5) MC/CUMM Hgb (14.0-18.0) GM/DL Hct (42.0-52.0) VOL% MCV (87-102) FL MCH (27-34) PG MCHC (32-36) GM/DL RDW (9.3-17.3) % Plt Count (130-400) T/CUMM MPV (9.6-12.0) FL Neut % (Auto) (38.7-73.9) % Lymph % (Auto) (21.2-54.2) % Teller % (Auto) (1.7-12.7) % Eos % (Auto) (0.00-10.9) % Baso % (Auto) (0.0-0.8) % Neut # (Auto) (1.4-7.4) 10*3/uL Lymph # (Auto) (1.4-4.0) 10*3/uL Teller # (Auto) (0.11-0.8) 10*3/uL Eos # (Auto) (0.0-0.87) 10*3/uL Baso # (Auto) (0.0-0.2) 10*3/uL Immature Gran % % Nucleated RBC % /100WBC Immature Gran # # Nucleated RBCs # 10*3/uL INR PT Patient/Control Mix SECS D-Dimer, Quantitative MG/L FEU Sodium (136-145) MMOL/L Potassium (3.5-5.1) MMOL/L Chloride (98-107) MMOL/L Carbon Dioxide (21-32) MMOL/L Anion Gap (5.0-15.0) MMOL/L BUN (7-18) MG/DL Creatinine (0.70-1.30) MG/DL GFR Calculation ML/MIN BUN/Creatinine Ratio (6.00-20.00) RATIO Glucose (74-106) MG/DL POC Glucose 278 H (74-106) MG/DL Calculated Osmolality (273-304) MOS/KG Calcium (8.5-10.1) MG/DL Magnesium (1.8-2.4) MG/DL Total Bilirubin (0.2-1.0) MG/DL AST (0-37) U/L ALT (16-61) U/L Alkaline Phosphatase (45-117) U/L Troponin I < 0.015 (0.00-0.045) NG/ML B-Natriuretic Peptide (2-100) PG/ML Total Protein (6.4-8.3) G/DL Albumin (3.4-5.0) G/DL Globulin (2.3-3.5) G/DL Albumin/Globulin Ratio (1.1-2.2) RATIO Triglycerides (2-150) MG/DL Cholesterol (50-200) MG/DL LDL Cholesterol MG/DL VLDL Cholesterol MG/DL HDL Cholesterol (40-60) MG/DL Heart Disease Risk Ratio Lipase (73-393) U/L <Brandon Almaraz III - Last Filed: 09/07/16 11:40> Diagnosis - Discharge Diagnosis (1) Atypical chest pain Status: Acute (2) Hypertension Status: Chronic (3) Degenerative disc disease Status: Acute (4) Obesity, unspecified Status: Chronic Chest Pain - Medical Decision Making Medical decision making narrative: Attending attestation note: I interviewed and examined this patient independently today. I agree with clinical status, physical exam findings, and treatment plan outlined by physician exceptional children teacher assistant TRA Bailey as documented in today's discharge summary. - Lab Data Result diagrams: 09/05/16 22:05 09/05/16 22:05
[2016-09-07 12:28] VITALS: BP 140/89
== END 2016-09-07 13:07 | disposition home or self-care (01) ==
LOC: N.TELEN 20:14 → N.ED 20:14 → SUATTDRO 22:49 → N.TELEN 09-06 00:18
PROVIDERS: ADMIT Internal Medicine; ATTEND Internal Medicine